=== PATIENT | female | born 1970 | race Caucasian/White ===

== ENCOUNTER 2020-09-26 09:57 | Emergency (ER) | payer MEDICARE ==
[~2020-09-26] VITALS: Ht 165.1 cm; Wt 120.0 kg
--- NOTE | 2020-09-26 10:02 | NUR ---
PT STRAIGHT BACK TO ROOM FROM [facility], PT WITH AUDIBLE WHEEZING, COUGH. PT STATES HAS BEEN GOING ON FOR APPROX 2 WEEKS, WORSING TODAY. PT USED INHALERS 4 TIMES TODAY. PT WITH HX OF ASTHMA, "NEVER THIS BAD"
--- NOTE | 2020-09-26 10:09 | NUR ---
[facility] RESIDENT AT BEDSIDE TO EVAL PT
--- NOTE | 2020-09-26 10:18 | NUR ---
REPORT TO MARELY THOMPSON
[2020-09-26] MEDS ORDERED: ALBUTEROL SULFATE 2.5 MG/3 ML NPPB ONE ×2 (10:30→11:00)
[2020-09-26] MEDS ORDERED: ALBUTEROL SULFATE 2.5 MG/3 ML ONE (10:30)
[2020-09-26] MEDS ORDERED: ALBUTEROL/IPRATROPIUM 2.5MG/0.5MG, 3 ML ONE (10:30)
[2020-09-26] MEDS ORDERED: ALBUTEROL/IPRATROPIUM 2.5MG/0.5MG, 3 ML NEB ONE (10:30)
[2020-09-26] MEDS ORDERED: MAGNESIUM SULFATE PMX 2GM/50ML 50 ML ONE (10:44)
[2020-09-26] MEDS ORDERED: methylPREDNISolone SOD SUCC 125 MG/2 ML ONE (10:44)
[2020-09-26] MEDS ORDERED: OXYcodone IR 5MG TABLET ONE (10:44)
[2020-09-26] MEDS ORDERED: TIZANIDINE 4MG TABLET PO ONE (11:00)
[2020-09-26] MEDS ORDERED: OXYcodone IR 5MG TABLET PO PRN (11:00)
[2020-09-26 11:16] LABS: BASOPHILS % (AUTO) 1 % (0-1); EOSINOPHILS % (AUTO) 11 % (1-7); LYMPHOCYTES % (AUTO) 34 % (22-44); MEAN CORPUSCULAR HEMOGLOBIN 29.9 pg (27.0-34.8); MEAN CORPUSCULAR HGB CONC 33.8 g/dL (32.4-35.8); MEAN PLATELET VOLUME 7.8 fL (7.4-10.4); MONOCYTES % (AUTO) 6 % (2-9); NEUTROPHILS % (AUTO) 49 % (42-75); PLATELET COUNT 406 x10^3/uL (130-400); RED CELL DISTRIBUTION WIDTH 15.5 % (9.6-15.2)
--- NOTE | 2020-09-26 11:18 | NUR ---
PT RECEIVING HUMIDIFIED OXYGEN
--- NOTE | 2020-09-26 11:18 | NUR ---
TASK RN: AFTER IV ESTABLISHED MEDICATED NOTED ON JUN. PT SITTING UPRIGHT IN GURNEY IN POSITION OF COMFORT, SPEAKING FULL SENTENCES. BEDSIDE XRAY COMPLETED
[2020-09-26 11:24] LABS: ALBUMIN 3.3 g/dL (3.4-5.0); ANION GAP 8 mmol/L (5-15); CALCIUM 8.8 mg/dL (8.5-10.1); CHLORIDE 108 mmol/L (98-107)
[2020-09-26 11:29] LABS: CREATININE 0.85 mg/dL (0.55-1.02)
[2020-09-26 11:30] LABS: ALANINE AMINOTRANSFERASE 26 U/L (12-78); ALKALINE PHOSPHATASE 45 U/L (45-117); BILIRUBIN,TOTAL 0.3 mg/dL (0.2-1.0); TOTAL PROTEIN 7.2 g/dL (6.4-8.2)
[2020-09-26] MEDS ORDERED: MAGNESIUM SULFATE PMX 2GM/50ML 50 ML IV ONE (11:30)
[2020-09-26] MEDS ORDERED: methylPREDNISolone SOD SUCC 125 MG/2 ML IVPush ONE (11:30)
[2020-09-26 11:44] VITALS: BP 154/85
[2020-09-26] MEDS ORDERED: KETOROLAC 30 MG/1 ML ONE (11:44)
--- NOTE | 2020-09-26 11:49 | NUR ---
TASK RN: PT CONTINUES TO HAVE NECK PAIN AND MEDICATED WITH TORADOL NOTED ON MAR
[2020-09-26] MEDS ORDERED: KETOROLAC 30 MG/1 ML IVPush ONE (12:30)
== END 2020-09-26 14:02 | disposition home or self-care (01) ==
LOC: ED 12:00
DX: J45.41 Moderate persistent asthma with (acute) exacerbation (principal); R00.0 Tachycardia, unspecified; R06.00 Dyspnea, unspecified; Z88.8 Allergy status to other drugs, medicaments and biological substances; J45.909 Unspecified asthma, uncomplicated
CPT/HCPCS: 36415; 71045; 80053; 83880; 85025; 93005; 94644; 96365; 96366; 96375; 99285; J1885; J2930; J3475; J7613